=== PATIENT | female | born 1940 | race Caucasian/White ===

== ENCOUNTER 2021-12-14 10:55 | Emergency (ER) | payer MEDICARE ==
[~2021-12-14] VITALS: Ht 157.4 cm; Wt 114.3 kg
[~2021-12-14 10:55] MED LIST: ALDACTONE25 M1 PO; ALLERGY RELIEF25 MG PO; AMITRIPTYLINE50 MG PO; AMLODIPINE BESYL5 MG PO; CITALOPRAM HYDR40 MG PO; CYMBALTA60 MG PO; DOXYCYCLINE MO100 MG PO; ELIQUIS5 M1 PO; FERROUSAL325 MG PO; FUROSEMIDE40 MG PO; HUMALOG100 UNIT/2 SC; HYDROCODON-ACE1 EACH PO; KLOR-CON M1010 ME1 PO; LOPRESSOR25 MG PO; MECLIZINE HYD12.5 MG PO; MIRALAX POWDER17 G1 PO; OMEPRAZOLE D/R20 MG PO; TOPROL XL50 M1 PO; TRAZODONE100 MG PO; TYLENOL EXTRA500 M2 PO; VISTARIL50 MG PO; Vitamin D PO; ZOLPIDEM TART5 MG PO
[2021-12-14 11:00] VITALS: BP 124/53
[2021-12-14 11:39] LABS: BASO % 0.5 % (0.0-1.0); EOS # 0.3 10*3/uL (0.0-0.4); EOS % 7.2 % (1.0-4.0); LYMPH # 0.4 10*3/uL (1.3-4.4); LYMPH % 10.7 % (27.0-41.0); MEAN CORPUSCULAR HGB 26.7 pg (27.0-31.0); MEAN PLATELET VOLUME 12.5 fl (9.6-12.3); MONO # 0.4 10*3/uL (0.1-1.0); MONO % 9.9 % (3.0-9.0); NEUT # 2.7 10*3/uL (2.3-7.9); NEUT % 70.9 % (47.0-73.0); PLATELET COUNT AUTOMATED 79 10*3/uL (130-400); RED BLOOD COUNT 2.81 10*6/uL (4.10-5.10); RED CELL DISTRI WIDTH 17.5 % (0-14.5); WHITE BLOOD COUNT 3.7 10*3/uL (4.8-10.8)
[2021-12-14 11:54] LABS: ALKALINE PHOSPHATASE 100 U/L (45-117); BUN 61 mg/dl (7-24); CHLORIDE 110 mmol/L (98-107); CREATININE 2.06 mg/dL (0.55-1.02); POTASSIUM 4.3 mmol/L (3.5-5.1); SGOT/AST 21 IU/L (3-35); SGPT/ALT 10 U/L (12-78); SODIUM 139 mmol/L (136-145); TOTAL PROTEIN 6.3 gm/dL (6.4-8.2)
== END 2021-12-14 16:26 ==
LOC: ED 10:55
PROVIDERS: Student in an Organized Health Care Education/Training Program
DX: S31.109A Unspecified open wound of abdominal wall, unspecified quadrant without penetration into peritoneal cavity, initial encounter (principal); Z91.013 Allergy to seafood; Z88.1 Allergy status to other antibiotic agents; Z88.8 Allergy status to other drugs, medicaments and biological substances; Z79.899 Other long term (current) drug therapy; Z90.49 Acquired absence of other specified parts of digestive tract; Z90.710 Acquired absence of both cervix and uterus; X58.XXXA Exposure to other specified factors, initial encounter; Y93.89 Activity, other specified; Y92.89 Other specified places as the place of occurrence of the external cause; Y99.8 Other external cause status

== ENCOUNTER → 2021-12-16 | Outpatient (CLI) | payer MEDICARE ==
[~2021-12-16] MED LIST changes: +LACTINEX 0.2 MG1 TAB PO; +ROZEREM8 MG PO; +VIBRAMYCIN HYC100 MG PO; +ZYVOX600 MG PO
[2021-12-17] VITALS (11 sets, daily range): BP systolic 98–132; BP diastolic 38–52
== END | disposition home or self-care (01) ==
LOC: TRNFUSION 14:11
PROVIDERS: ATTEND Internal Medicine
DX: D64.9 Anemia, unspecified (principal); K21.9 Gastro-esophageal reflux disease without esophagitis; E03.9 Hypothyroidism, unspecified; I48.91 Unspecified atrial fibrillation; I13.0 Hypertensive heart and chronic kidney disease with heart failure and stage 1 through stage 4 chronic kidney disease, or unspecified chronic kidney disease; E11.22 Type 2 diabetes mellitus with diabetic chronic kidney disease; N18.32 Chronic kidney disease, stage 3b; I50.32 Chronic diastolic (congestive) heart failure; I48.20 Chronic atrial fibrillation, unspecified

== ENCOUNTER 2021-12-19 04:15 | Emergency (ER) | payer MEDICARE ==
[~2021-12-19] VITALS: Wt 113.4 kg
[~2021-12-19 04:15] MED LIST changes: -LACTINEX 0.2 MG1 TAB PO; -ROZEREM8 MG PO; -VIBRAMYCIN HYC100 MG PO; -ZYVOX600 MG PO
[2021-12-19 04:16] VITALS: BP 128/44
[2021-12-19 05:35] LABS: CREATININE 2.81 mg/dL (0.55-1.02); POTASSIUM 4.4 mmol/L (3.5-5.1); TOTAL PROTEIN 6.7 gm/dL (6.4-8.2)
[2021-12-19 05:55] LABS: BASO % 0.6 % (0.0-1.0); EOS # 0.3 10*3/uL (0.0-0.4); EOS % 5.6 % (1.0-4.0); HEMATOCRIT 28.1 % (37.0-47.0); LYMPH # 0.5 10*3/uL (1.3-4.4); LYMPH % 8.4 % (27.0-41.0); MEAN CELL VOLUME 90.6 fl (81.0-99.0); MEAN CORPUSCULAR HGB 28.4 pg (27.0-31.0); MEAN CORPUSCULAR HGB CONC 31.3 g/dl (33.0-37.0); MEAN PLATELET VOLUME 12.5 fl (9.6-12.3); MONO # 0.6 10*3/uL (0.1-1.0); NEUT # 3.9 10*3/uL (2.3-7.9); NEUT % 72.5 % (47.0-73.0); PLATELET COUNT AUTOMATED 90 10*3/uL (130-400); RED CELL DISTRI WIDTH 18.4 % (0-14.5); WHITE BLOOD COUNT 5.4 10*3/uL (4.8-10.8)
[2021-12-19] MEDS ORDERED: VIBRAMYCIN HYC100 MG PO (06:18)
[2021-12-22] MEDS ORDERED: ROZEREM8 MG PO (08:34)
[2021-12-22] MEDS ORDERED: LACTINEX 0.2 MG1 TAB PO (08:34)
[2021-12-22] MEDS ORDERED: ZYVOX600 MG PO (08:35)
== END 2021-12-19 06:43 | disposition home or self-care (01) ==
LOC: ED 04:15
PROVIDERS: Student in an Organized Health Care Education/Training Program
DX: L03.115 Cellulitis of right lower limb (principal); Z88.8 Allergy status to other drugs, medicaments and biological substances; Z88.2 Allergy status to sulfonamides; Z91.013 Allergy to seafood; Z79.899 Other long term (current) drug therapy; Z87.442 Personal history of urinary calculi; Z90.49 Acquired absence of other specified parts of digestive tract; Z98.890 Other specified postprocedural states; Z90.710 Acquired absence of both cervix and uterus